=== PATIENT | female | born 1985 | race Caucasian/White ===

== ENCOUNTER 2018-02-08 20:57 | Outpatient (CLI) | END 2018-02-09 01:13 | disposition home or self-care (01) ==

== ENCOUNTER 2018-02-10 19:05 | Outpatient (CLI) | END 2018-02-11 02:06 | disposition home or self-care (01) ==

== ENCOUNTER 2018-04-13 15:29 | Outpatient (CLI) | END 2018-04-13 16:35 | disposition home or self-care (01) ==

== ENCOUNTER 2018-04-26 12:19 | Outpatient (CLI) | END 2018-04-26 15:02 | disposition home or self-care (01) ==

== ENCOUNTER 2018-04-28 04:26 | Inpatient (IN) | END 2018-04-30 13:10 | disposition home or self-care (01) | DRG 775 ==